=== PATIENT | female | born 1990 | race African-American/Black ===

== ENCOUNTER 2020-09-25 06:09 | Inpatient (IN) ==
[2020-09-25] MEDS ORDERED: ONDANSETRON 4 MG/2 ML VIAL IV PRN (06:24)
[2020-09-25] MEDS ORDERED: MEPERIDINE 50 MG/1 ML VIAL IM PRN (06:24)
[2020-09-25] MEDS ORDERED: BUTORPHANOL 1 MG/ML VIAL IV PRN (06:24)
[2020-09-25] MEDS ORDERED: OXYTOCIN/LR 20 UNIT/1,000 ML BAG IV SCH (06:30)
[2020-09-25] MEDS ORDERED: INFLUENZA VIRUS VACCINE 0.5 ML SYRINGE IM ONE (06:32)
[2020-09-25 06:55] LABS: Basophils % 0.3 % (0.0-0.8); Eosinophils # 0.2 10*3/uL (0.0-0.87); Eosinophils % 2.5 % (0.00-10.9); Hematocrit 33.2 VOL% (35.7-47.0); Hemoglobin 10.8 GM/DL (12.0-16.0); Immature Granulocytes % 0.9 %; Immature Granulocytes Absolute 0.06 #; Lymphocytes # 2.1 10*3/uL (1.4-4.0); Lymphocytes % 32.2 % (21.3-54.2); Mean Corpuscular HGB Conc 32.5 GM/DL (32-36); Mean Corpuscular Volume 91.7 FL (87-102); Mean Platelet Volume 10.2 FL (9.6-12.0); Monocytes % 10.3 % (1.7-12.7); Neutrophils % 53.8 % (38.7-73.9); Platelet Count 220 T/CUMM (130-400); Red Blood Count 3.62 MC/CUMM (3.8-5.5); Red Cell Distribution Width 13.9 % (9.3-17.3); White Blood Count 6.5 T/CUMM (4-12)
[2020-09-25] MEDS: LACTATED RINGERS 1,000 ML IV SCH ×2 (07:24→18:14)
[2020-09-25] MEDS ORDERED: ePHEDrine 50 MG/ML VIAL IV PRN (16:06)
[2020-09-25] MEDS ORDERED: FAMOTIDINE 20 MG/2 ML VIAL IV ONE (16:06)
[2020-09-25] MEDS ORDERED: CITRIC ACID/SODIUM CITRATE 30 ML UDCUP PO ONE (16:06)
[2020-09-25] MEDS ORDERED: diphenhydrAMINE 50 MG/1 ML VIAL IV PRN ×2 (16:06)
[2020-09-25] MEDS ORDERED: LACTATED RINGERS 1,000 ML IV ONE (16:06)
[2020-09-25] MEDS ORDERED: NALOXONE 0.4 MG/ML VIAL IV PRN (16:06)
[2020-09-25] MEDS ORDERED: LACTATED RINGERS 250 ML IV PRN (16:06)
[2020-09-25] MEDS ORDERED: fentaNYL 2 MCG/ROPIV 0.2% EPID 100 ML EPIDURAL SCH (16:30)
[2020-09-25 19:21] LABS: Bilirubin,Urine Negative (Negative); Blood, Urine Negative (Negative); Glucose,Urine (UA) Negative (Negative); Ketones,Urine 80 mg/dL (Negative); Mucus,Urine Occasional /LPF (Occasional); Nitrite,Urine Negative (Negative); Protein,Urine 30 MG/DL; RBC,Urine 1 /HPF (0-4); Squamous Epithelial Cell,Urine Occasional /HPF (0-10); Urine Appearance CLEAR (Clear); Urine Color Yellow (Yellow); Urine Specific Gravity 1.019 (1.001-1.035); WBC,Urine 1 /HPF (0-6)
[2020-09-25] MEDS ORDERED: TRANEXAMIC ACID 1,000 MG/10 ML VIAL ONE (19:27)
[2020-09-25] MEDS ORDERED: miSOPROStoL 200 MCG TABLET ONE (19:27)
[2020-09-25] MEDS ORDERED: CARBOPROST TROMETHAMINE 250 MCG/ML AMP IM ONE (19:28)
[2020-09-25] MEDS ORDERED: METHYLERGONOVINE 0.2 MG/1 ML AMP ONE (19:28)
[2020-09-25] MEDS ORDERED: SODIUM CHLORIDE 0.9% 0 ML IV ONE (19:28)
[2020-09-25] MEDS ORDERED: LIDOCAINE 1% 50 ML VIAL ONE (19:28)
[2020-09-25 21:36] LABS: Cord Arterial Blood HCO3 21.4 MMOL/L
[2020-09-25 21:40] LABS: Cord Venous Blood HCO3 16.2 MMOL/L; Cord Venous Blood PO2 149.2 MMHG
[2020-09-26] MEDS ORDERED: ACETAMINOPHEN 325 MG TABLET PO PRN (00:34)
[2020-09-26] MEDS ORDERED: HYDROCORTISONE 2.5% RECTAL CREAM 30 GM TUBE TOP PRN (00:34)
[2020-09-26] MEDS ORDERED: BENZOCAINE 20%/MENTHOL 0.5% SPRAY 56 GM CAN TOP PRN (00:34)
[2020-09-26] MEDS ORDERED: WITCH HAZEL PADS 100/JAR TOP PRN (00:34)
[2020-09-26] MEDS ORDERED: OXYTOCIN/LR 20 UNIT/1,000 ML BAG IV ONE (00:34)
[2020-09-26] MEDS ORDERED: oxyCODONE/ACETAMINOPHEN 5-325 MG TABLET PO PRN ×2 (00:34)
[2020-09-26] MEDS ORDERED: RHO(D) IMMUNE GLOBULIN 300 MCG SYRINGE IM ONE (00:34)
[2020-09-26] MEDS ORDERED: MEASLES/MUMPS/RUBELLA VACCINE 0.5 ML VIAL SUBCUT ONE (00:34)
[2020-09-26] MEDS ORDERED: LANOLIN 50% CREAM 0.3 OZ TUBE TOP PRN (00:34)
[2020-09-26] MEDS ORDERED: BISACODYL 10 MG SUPP RECTAL PRN (00:34)
[2020-09-26] MEDS ORDERED: DIPH/TET/ACEL PERT BOOSTER VACCINE 0.5 ML VIAL IM ONE (00:34)
[2020-09-26 06:20] LABS: Basophils % 0.2 % (0.0-0.8); Eosinophils % 0.3 % (0.00-10.9); Hematocrit 30.5 VOL% (35.7-47.0); Hemoglobin 9.9 GM/DL (12.0-16.0); Immature Granulocytes % 0.7 %; Immature Granulocytes Absolute 0.09 #; Lymphocytes # 2.3 10*3/uL (1.4-4.0); Lymphocytes % 17.3 % (21.3-54.2); Mean Corpuscular HGB Conc 32.5 GM/DL (32-36); Mean Corpuscular Volume 90.8 FL (87-102); Mean Platelet Volume 11.5 FL (9.6-12.0); Neutrophils % 72.5 % (38.7-73.9); Platelet Count 220 T/CUMM (130-400); Red Blood Count 3.36 MC/CUMM (3.8-5.5); Red Cell Distribution Width 13.9 % (9.3-17.3); White Blood Count 13.1 T/CUMM (4-12)
[2020-09-26] MEDS: IBUPROFEN 800 MG TABLET PO PRN ×2 (07:52→20:11)
[2020-09-26] MEDS: DOCUSATE SODIUM 100 MG CAPSULE PO SCH ×2 (09:06→20:11)
[2020-09-27] MEDS: IBUPROFEN 800 MG TABLET PO PRN (05:15)
[2020-09-27 07:20] VITALS: BP 105/59
[2020-09-27] MEDS: DOCUSATE SODIUM 100 MG CAPSULE PO SCH (10:07)
== END 2020-09-27 12:50 | disposition home or self-care (01) | DRG 807 ==
LOC: N.LD 06:09 → N.OB 09-26
PROVIDERS: ADMIT Obstetrics & Gynecology; ATTEND Obstetrics & Gynecology